=== PATIENT | male | born 1985 | race Caucasian/White ===

== ENCOUNTER → 2018-08-18 | Outpatient (CLI) | payer OTHER ==
--- NOTE | 2018-08-18 09:59 | PCVCIMAG ---
APPROVED REPORT Study performed: 08/18/2018 08:31:05 EXAM: Comprehensive 2D, Doppler, and color-flow Echocardiogram Patient Location: Echo lab Status: routine BSA: 2.02 HR: 86 bpmBP: 138/92 mmHg Rhythm: NSR Other Information Study Quality: Adequate Risk Factors: Cardiac Risk Factors: HTN Indications Hypertension/HDD LVH by EKG 2D Dimensions IVSd: 11.63 (7-11mm)LVOT Diam: 23.00 (18-24mm) LVDd: 56.97 mm PWd: 11.85 (7-11mm)Ascending Ao: 33.77 (22-36mm) LVDs: 40.52 (25-40mm) Left Atrium: 34.09 (27-40mm) Aortic Root: 34.55 mm LV Single Plane 4CH: 53.23 % LV Single Plane 2CH: 58.88 % Biplane EF: 56.4 % Volumes Left Atrial Volume (Systole) Single Plane 4CH: 45.52 mLSingle Plane 2CH: 52.22 mL LA ESV Index: 24.00 mL/m2 Aortic Valve AoV Peak Jack.: 1.03 m/s AO Peak Gr.: 4.27 mmHgLVOT Max P.89 mmHg LVOT Max V: 0.84 m/s SHANI Vmax: 3.33 cm2 Mitral Valve E/A Ratio: 1.4 MV Decel. Time: 300.92 ms MV E Max Jack.: 0.65 m/s MV A Jack.: 0.46 m/s IVRT: 72.66 ms TDI E/Lateral E': 5.91E/Medial E': 7.22 Medial E' Jack.: 0.09 m/s Lateral E' Jack.: 0.11 m/s Pulmonary Valve PV Peak Jack.: 0.74 m/sPV Peak Gr.: 2.17 mmHg Pulmonary Vein P Vein S: 0.59 m/sP Vein A: 0.27 m/s P Vein D: 0.53 m/sP Vein A Dur.: 69.2 msec P Vein S/D Ratio: 1.11 Tricuspid Valve RAP Estimate: 7.00 mmHg Left Ventricle The left ventricle is normal size. There is normal LV segmental wall motion. Mild concentric left ventricular hypertrophy. Left ventricular systolic function is normal. The left ventricular ejection fraction is within the normal range. LVEF is 55-60%. The left ventricular diastolic function is normal. Right Ventricle The right ventricle is normal size. The right ventricular systolic function is normal. Atria The left atrium size is normal. The right atrium size is normal. Aortic Valve The aortic valve is normal in structure. No aortic regurgitation is present. There is no aortic valvular stenosis. Mitral Valve The mitral valve is normal in structure. Trace mitral regurgitation. No evidence of mitral valve stenosis. Tricuspid Valve The tricuspid valve is normal in structure. There is no tricuspid valve regurgitation noted. Pulmonic Valve The pulmonary valve is normal in structure. There is no pulmonic valvular regurgitation. Great Vessels The aortic root is normal in size. IVC is normal in size and collapses >50% with inspiration. Pericardium There is no pericardial effusion. <Conclusion> The left ventricle is normal size. Mild concentric left ventricular hypertrophy. Left ventricular systolic function is normal. The left ventricular diastolic function is normal. The right ventricle is normal size. The left atrium size is normal. The right atrium size is normal. The aortic valve is normal in structure. Trace mitral regurgitation. There is no tricuspid valve regurgitation noted. There is no pericardial effusion.
== END | disposition home or self-care (01) ==
LOC: PCVCIMAG 08:07
PROVIDERS: ATTEND Family Medicine
DX: I11.9 Hypertensive heart disease without heart failure (principal)
CPT/HCPCS: 93306